=== PATIENT | female | born 1955 | race Caucasian/White ===

== ENCOUNTER → 2021-08-15 | Outpatient (CLI) | payer MEDICARE ==
--- NOTE | 2021-08-15 15:08 | RAD ---
EXAM: Left wrist, 3 views. HISTORY: Injury. Pain. COMPARISON: None. FINDINGS: 3 views of the left wrist are obtained. There is a corticated ossicle adjacent to the ulnar styloid. There is lucency involving the lunate likely due to degenerative subchondral cyst formation . There is no convincing acute fracture, dislocation or subluxation. There is no foreign body. IMPRESSION: No acute osseous finding. Electronically signed by: Frances Taylor MD (08/15/2021 3:06 PM) [id number]
== END ==
LOC: PMG 14:05
PROVIDERS: ATTEND Nurse Practitioner
DX: S69.92XA Unspecified injury of left wrist, hand and finger(s), initial encounter (principal); X58.XXXA Exposure to other specified factors, initial encounter; Y93.89 Activity, other specified; Y92.89 Other specified places as the place of occurrence of the external cause; Y99.8 Other external cause status
CPT/HCPCS: 73110